=== PATIENT | male | born 1995 | race African-American/Black ===

== ENCOUNTER 2018-11-12 01:46 | Emergency (ER) | payer OTHER ==
[~2018-11-12] VITALS: Ht 167.6 cm; Wt 77.0 kg
[2018-11-12] MEDS ORDERED: ACETAMINOPHEN 325MG TABLET PO ONE (04:30)
[2018-11-12] MEDS ORDERED: LIDOCAINE HCL 1% 20ML VIAL (Pyxis) INJ INFIL ONE (04:30)
[2018-11-12] MEDS ORDERED: TETANUS, DIPHTHERIA, PERTUSSIS VAC/PF 0.5ML (>7YR OLD) IM ONE (07:00)
[2018-11-12 07:24] VITALS: BP 139/69
== END 2018-11-12 07:25 | disposition home or self-care (01) ==
LOC: ER 01:46
DX: S62.661A Nondisplaced fracture of distal phalanx of left index finger, initial encounter for closed fracture (principal); S62.667A Nondisplaced fracture of distal phalanx of left little finger, initial encounter for closed fracture; S01.01XA Laceration without foreign body of scalp, initial encounter; S63.616A Unspecified sprain of right little finger, initial encounter; S09.8XXA Other specified injuries of head, initial encounter; Y08.89XA Assault by other specified means, initial encounter; Y93.89 Activity, other specified; Y92.89 Other specified places as the place of occurrence of the external cause; Y99.8 Other external cause status
CPT/HCPCS: 12001; 73120; 73130; 90471; 90715; 99283; J3490

== ENCOUNTER 2018-11-20 13:16 | Emergency (ER) | payer OTHER ==
[~2018-11-20] VITALS: Ht 170.2 cm; Wt 87.7 kg
[2018-11-20 13:57] VITALS: BP 110/68
== END 2018-11-20 15:04 | disposition home or self-care (01) ==
LOC: ER 13:16
DX: S60.152A Contusion of left little finger with damage to nail, initial encounter (principal); Z48.02 Encounter for removal of sutures; Y08.89XA Assault by other specified means, initial encounter; Y93.89 Activity, other specified; Y92.89 Other specified places as the place of occurrence of the external cause
CPT/HCPCS: 99282